=== PATIENT | female | born 1985 | race Caucasian/White ===

== ENCOUNTER 2018-05-25 14:07 | Emergency (ER) | payer BC, OTHER ==
--- NOTE | 2018-05-25 14:33 | ER Document Report ---
ED Medical Screen (RME) - General Chief Complaint: Lower Abdominal Pain Stated Complaint: ABDOMINAL PAIN Time Seen by Provider: 05/25/18 14:28 Notes: Patient is a 32-year-old female with TBI that presents to the emergency department for chief complaint of difficulty urinating, headache, body aches. ROS: Other than noted above, the 12 point review of systems was reviewed with the patient and were negative, all pertinent findings are included in the HPI. PHYSICAL EXAMINATION: Vital signs reviewed. GENERAL: Well-appearing, well-nourished and in no acute distress. HEAD: Atraumatic, normocephalic. EYES: Pupils equal round extraocular movements intact, conjunctiva are normal. ENT: Nares patent NECK: Normal range of motion CV: Heart regular rate and rhythm LUNGS: No respiratory distress Musculoskeletal: Normal range of motion NEUROLOGICAL: Normal speech PSYCH: Normal mood, normal affect. MDM: Patient seen and examined for rapid initial assessment. Vital signs reviewed. A comprehensive ED assessment and evaluation of the patient, analysis of test results and completion of the medical decision making process will be conducted by additional ED providers. *Note is created using voice recognition software and may contain spelling, syntax or grammatical errors. TRAVEL OUTSIDE OF THE [place] IN LAST 30 DAYS: No - Related Data Allergies/Adverse Reactions: No Known Allergies Allergy (Verified 05/25/18 14:10) Past Medical History - Social History Frequency of alcohol use: None Drug Abuse: None - Past Medical History Cardiac Medical History: Denies: Hx Coronary Artery Disease, Hx Hypertension Neurological Medical History: Reports: Hx Migraine Renal/ Medical History: Reports: Hx Ectopic , Hx Ovarian Cysts. Denies: Hx Peritoneal Dialysis GI Medical History: Reports: Hx Ulcer Past Surgical History: Reports: Hx Gynecologic Surgery - ectopic , bilateral oophrectomy, Hx Oral Surgery, Hx Tonsillectomy - Immunizations Immunizations up to date: Yes Hx Diphtheria, Pertussis, Tetanus Vaccination: Yes Physical Exam - Vital signs Vitals: Temp Pulse Resp BP Pulse Ox 98.0 F 89 16 128/76 H 99 05/25/18 14:15 05/25/18 14:15 05/25/18 14:15 05/25/18 14:15 05/25/18 14:15 Course - Vital Signs Vital signs: Temp Pulse Resp BP Pulse Ox 98.0 F 89 16 128/76 H 99 05/25/18 14:15 05/25/18 14:15 05/25/18 14:15 05/25/18 14:15 05/25/18 14:15
[2018-05-25 15:19] LABS: ABSOLUTE EOSINOPHILS # (AUTO) 0.2 10^3/uL (0.0-0.6); ABSOLUTE LYMPHOCYTES (AUTO) 2.2 10^3/uL (0.5-4.7); ABSOLUTE MONOCYTES (AUTO) 0.4 10^3/uL (0.1-1.4); ABSOLUTE NEUT (AUTO) 5.3 10^3/uL (1.7-8.2); BASOPHILS % (AUTO) 0.5 % (0-2); EOSINOPHILS % (AUTO) 2.4 % (0-6); HEMATOCRIT 43.6 % (36.0-47.0); HEMOGLOBIN 15.3 g/dL (12.0-15.5); LYMPHOCYTES % (AUTO) 27.4 % (13-45); MEAN CORPUSCULAR HEMOGLOBIN 33.2 pg (27.0-33.4); MEAN CORPUSCULAR VOLUME 95 fl (80-97); MONOCYTES % (AUTO) 4.3 % (3-13); PLATELET COUNT 202 10^3/uL (150-450); RED CELL DISTRIBUTION WIDTH 12.4 % (11.5-14.0); SEGMENTED NEUTROPHILS % (AUTO) 65.4 % (42-78); TOTAL CELLS COUNTED % (AUTO) 100 %; WHITE BLOOD COUNT 8.1 10^3/uL (4.0-10.5)
[2018-05-25 15:28] LABS: APPEARANCE,URINE SLIGHTLY-CLOUDY; BILIRUBIN,URINE NEGATIVE (NEGATIVE); COLOR,URINE STRAW; GLUCOSE, URINE NEGATIVE (NEGATIVE); KETONES,URINE NEGATIVE (NEGATIVE); LEUKOCYTE ESTERASE,URINE NEGATIVE (NEGATIVE); NITRITE,URINE NEGATIVE (NEGATIVE); PROTEIN,URINE NEGATIVE (NEGATIVE); URINE SPECIFIC GRAVITY 1.002; UROBILINOGEN,URINE NEGATIVE mg/dL (<2.0)
[2018-05-25 15:45] LABS: ALANINE AMINOTRANSFERASE 18 U/L (9-52); ALBUMIN 4.6 g/dL (3.5-5.0); ALKALINE PHOSPHATASE 61 U/L (38-126); ANION GAP 8 (5-19); ASPARTATE AMINO TRANSFERASE 21 U/L (14-36); BILIRUBIN,DIRECT 0.3 mg/dL (0.0-0.4); BILIRUBIN,TOTAL 0.5 mg/dL (0.2-1.3); BLOOD UREA NITROGEN 2 mg/dL (7-20); CALCIUM 9.3 mg/dL (8.4-10.2); CARBON DIOXIDE 29 mmol/L (22-30); CHLORIDE 108 mmol/L (98-107); GLUCOSE 90 mg/dL (75-110); LIPASE 68.7 U/L (23-300); POTASSIUM 3.7 mmol/L (3.6-5.0); SODIUM 144.8 mmol/L (137-145); TOTAL PROTEIN 7.7 g/dL (6.3-8.2)
--- NOTE | 2018-05-25 15:58 | ER Document Report ---
ED General - General TRAVEL OUTSIDE OF THE [place] IN LAST 30 DAYS: No <DOYLE BENNETT - Last Filed: 05/25/18 19:09> <SCARARJUNYUNIER - Last Filed: 05/25/18 22:40> - General Chief Complaint: Lower Abdominal Pain Stated Complaint: ABDOMINAL PAIN Time Seen by Provider: 05/25/18 14:28 - HPI Notes: Patient is a 32-year-old female with a history of TBI, chronic headaches, tremors, seizures, dystonia rt foot (progressing per pt), muscular atrophy who presents to the ED complaining of right posterior lateral headache times 3-4 days that has been relatively constant, but is not unusual for her. Patient states that she also will have an uncomfortable feeling when her bladder is too full she has to go the bathroom, which then improves thereafter. Patient states that she is able to urinate, and will occasionally push on her bladder to help push out the minimal remaining urine thereafter. Patient states that she will have occasional low back pain as well. Her pains do not radiate otherwise. She is eating and drinking without any difficulties. She is having normal bowel movements. She has not had any vaginal discharge, odor, or bleeding. No history of eating disorder, IV drug abuse, or prostitution. Denies any fever, head injury, neck pain, changes in vision/speech/mentation/ hearing, URI, sore throat, chest pain, palpitations, syncope, cough, shortness of breath, wheeze, dyspnea, abdominal pain, nausea/vomiting/diarrhea, hematuria , loss of control of bowel or bladder, numbness/tingling, saddle anesthesia, or rash. (DOYLE BENNETT) - Related Data Allergies/Adverse Reactions: No Known Allergies Allergy (Verified 05/25/18 14:10) Past Medical History - Social History Smoking Status: Current Every Day Smoker Frequency of alcohol use: None Drug Abuse: None Family History: Reviewed & Not Pertinent Patient has suicidal ideation: No Patient has homicidal ideation: No - Past Medical History Cardiac Medical History: Denies: Hx Coronary Artery Disease, Hx Hypertension Neurological Medical History: Reports: Hx Migraine Renal/ Medical History: Reports: Hx Ectopic , Hx Ovarian Cysts. Denies: Hx Peritoneal Dialysis GI Medical History: Reports: Hx Ulcer Past Surgical History: Reports: Hx Gynecologic Surgery - ectopic , bilateral oophrectomy, Hx Oral Surgery, Hx Tonsillectomy - Immunizations Immunizations up to date: Yes Hx Diphtheria, Pertussis, Tetanus Vaccination: Yes <DONALDDOYLE - Last Filed: 05/25/18 19:09> Review of Systems - Review of Systems -: Yes All other systems reviewed and negative <DOYLE BENNETT - Last Filed: 05/25/18 19:09> Physical Exam <DOYLE BENNETT - Last Filed: 05/25/18 19:09> <YUNIER PFEIFFER - Last Filed: 05/25/18 22:40> - Vital signs Vitals: Temp Pulse Resp BP Pulse Ox 98.0 F 89 16 128/76 H 99 05/25/18 14:15 05/25/18 14:15 05/25/18 14:15 05/25/18 14:15 05/25/18 14:15 - Notes Notes: PHYSICAL EXAMINATION: GENERAL: Pt appears cachectic and moves slowly. A&Ox4. Answers questions appropriately. HEAD: Atraumatic, normocephalic. + reproducible tenderness to palp rt posterolateral scalp (possible lymph node-mobile, cyst-like) EYES: Pupils equal round and reactive to light, extraocular movements intact, sclera anicteric, conjunctiva are normal. No nystagmus. vis douglass intact. No obvious red light deficit noted. ENT: EAC clear b/l. TM's intact b/l without erythema, fluid, or perforation. Nares patent and without discharge. oropharynx clear without exudates. No tonsilar hypertrophy or erythema. Moist mucous membranes. No sinus tenderness. NECK: Normal range of motion, supple without lymphadenopathy. No rigidity/ meningismus. No midline tenderness. LUNGS: Breath sounds clear to auscultation bilaterally and equal. No wheezes rales or rhonchi. HEART: Regular rate and rhythm without murmurs, rubs, gallops. ABDOMEN: Soft, nontender, nondistended abdomen. No guarding, no rebound. Normal bowel sounds present. No CVA tenderness bilaterally. Musculoskeletal: Rt foot: slightly inverted with LROM. Slight tremor noted to the rt hand. Ext's otherwise b/l: FROM to passive/active. Strength 5+/5. N/V intact distal. No bony tenderness of extremities. Back: FROM. Strength 5+/5. SLR neg. No obvious foot drop. Rectal tone intact. Extremities: No cyanosis, clubbing, or edema b/l. Peripheral pulses 2+. Capillary refill less than 2 seconds. NEUROLOGICAL: GCS 15. Cranial nerves grossly intact. Normal speech, normal gait. see above. Reflexes 2+ b/l. JAMIE's negative. Pronator drift negative. Heel/garcia, finger/nose wnl. Slight dystonia to finger:nose, but able to accomplish. PSYCH: Normal mood, normal affect. SKIN: Warm, Dry, normal turgor, no rashes or lesions noted. (DOYLE BENNETT) Course - Laboratory Result Diagrams: 05/25/18 15:05 05/25/18 15:05 <DOYLE BENNETT - Last Filed: 05/25/18 19:09> - Laboratory Result Diagrams: 05/25/18 15:05 05/25/18 15:05 <YUNIER PFEIFFER - Last Filed: 05/25/18 22:40> - Re-evaluation Re-evalutation: 05/25/18 16:07 I have been reviewing this case with Dr. Whitney as this is a unique case with neurological complaints. Pt has never had an MRI of the brain performed before , nor has she been seen by a neurologist. We will start with a CT scan and labs and consider MRI thereafter of the brain. Differential includes nonspecific neurological condition, MS, anorexia, HIV, etc. 05/25/18 18:[address] scan of the head were unremarkable for any acute pathology. Will obtain we will obtain an MRI to further evaluate. I did review with the radiologist who recommends with and without contrast. I did review and updated the case with the patient who is in agreement for the MRI for further evaluation. Patient has vague symptoms with nonspecific neurological component. She is not having any worsening or deterioration in her symptoms throughout her stay. She is nontoxic-appearing and is tolerating p.o. without difficulty. 05/25/18 19:10 Transfer of care to Yunier MENDOZA (DOYLE BENNETT) 05/25/18 22:38 MRI has finally completed, patient declined contrast during the procedure, non- contrast study was obtained. No acute findings. No obvious abnormalities. On discussion and reevaluation noted what appears to be a swollen lymph node over the posterior auricular area. Does not appear to be an abscess, area is mildly tender. Patient is currently completing a course of amoxicillin. After discussion provided with dexamethasone. Provided with copy of report and disc. Patient states she has follow-up with [facility] as previously. States she will take the image and report in a follow-up. Requesting discharge. Stable at time of discharge. (YUNIER PFEIFFER) - Vital Signs Vital signs: Temp Pulse Resp BP Pulse Ox 98.0 F 89 16 128/76 H 99 05/25/18 14:15 05/25/18 14:15 05/25/18 14:15 05/25/18 14:15 05/25/18 14:15 - Laboratory Laboratory results interpreted by nm: 05/25/18 15:05 Chloride 108 H BUN 2 L Creatinine 0.51 L Discharge <DOYLE BENNETT - Last Filed: 05/25/18 19:09> <YUNIER PFEIFFER - Last Filed: 05/25/18 22:40> - Discharge Clinical Impression: Headache Qualifiers: Headache type: unspecified Headache chronicity pattern: acute headache Intractability: not intractable Qualified Code(s): R51 - Headache Condition: Stable Instructions: Headache ([facility]) Additional Instructions: The MRI does not show any acute or concerning findings based on the noncontrast study that we obtained. Follow-up with [facility] as before for additional management, bring your disc/report. You have been given a dose of dexamethasone for the swelling of the lymph node, you can complete your amoxicillin course. He can take Tylenol or ibuprofen for pain if needed. Return to the ED with any worsening symptoms and/or development of fever, headache, changes in behavior/mentation/vision/speech, chest pain, palpitations , syncope, shortness of breath, trouble breathing, abdominal pain, n/v/d, blood in stool/urine, loss of control of bowel/bladder, urinary retention, muscle weakness/paralysis, saddle anesthesia, numbness/tingling, or other worsening symptoms that are concerning to you. Forms: Elevated Blood Pressure, Smoking Cessation Education Referrals: SHERRIE LAKHANI MD [EMERITUS] - Follow up as needed
--- NOTE | 2018-05-25 16:20 | RADIOLOGY REPORT (SQ) ---
EXAM DESCRIPTION: CT HEAD WITHOUT COMPLETED DATE/TIME: 05/25/2018 4:12 pm REASON FOR STUDY: headache, hx tbi COMPARISON: None. TECHNIQUE: Axial images acquired through the brain without intravenous contrast. Images reviewed wi th bone, brain and subdural windows. Additional sagittal and coronal reconstructions were generated. Images stored on PACS. All CT scanners at this facility use dose modulation, iterative reconstruction, and/or weight based d osing when appropriate to reduce radiation dose to as low as reasonably achievable (ALARA). [facility]: Dose Right [facility]: CareDose [facility]: Dose Right [facility]: Teradose 4D [facility]: Vendalize RADIATION DOSE: CT Rad equipment meets quality standard of care and radiation dose reduction techniq ues were employed. CTDIvol: 53.2 mGy. DLP: 964 mGy-cm. mGy. LIMITATIONS: None. FINDINGS: VENTRICLES: Normal size and contour. CEREBRUM: No masses. No hemorrhage. No midline shift. No evidence for acute infarction. Normal gra y/white matter differentiation. No areas of low density in the white matter. CEREBELLUM: No masses. No hemorrhage. No alteration of density. No evidence for acute infarction. EXTRAAXIAL SPACES: No fluid collections. No masses. ORBITS AND GLOBE: No intra- or extraconal masses. Normal contour of globe without masses. CALVARIUM: No fracture. PARANASAL SINUSES: No fluid or mucosal thickening. SOFT TISSUES: No mass or hematoma. OTHER: No other significant finding. IMPRESSION: NORMAL BRAIN CT WITHOUT CONTRAST. EVIDENCE OF ACUTE STROKE: NO. COMMENT: Quality ID # [id number]: Final reports with documentation of one or more dose reduction techniques (e.g., Automated exposure control, adjustment of the mA and/or kV according to patient size, use of iterative reconstruction technique) TECHNICAL DOCUMENTATION: JOB ID: [id number] [employer]- All Rights Reserved Reading location - IP/workstation name: [email or web address]
[2018-05-25 19:15] LABS: URINE AMPHETAMINES SCREEN NEGATIVE; URINE BARBITURATES SCREEN NEGATIVE; URINE BENZODIAZEPINES SCREEN UNCONFIRMED POSITIVE; URINE COCAINE SCREEN NEGATIVE; URINE MARIJUANA (THC) SCREEN NEGATIVE; URINE METHADONE SCREEN NEGATIVE; URINE PHENCYCLIDINE SCREEN NEGATIVE
--- NOTE | 2018-05-25 21:19 | RADIOLOGY REPORT (SQ) ---
EXAM DESCRIPTION: MR BRAIN WITHOUT THEN WITH IV CONTRAST COMPLETED DATE/TME: 05/25/2018 18:02 CLINICAL HISTORY: 32 years, Female, Headaches, neuro symptoms, ?MS COMPARISON: None EXAM DESCRIPTION: CLINICAL HISTORY: Headaches, neuro symptoms, ?MS COMPARISON: None TECHNIQUE: Multiplanar multisequence imaging of the brain including the intravenous administration of contrast. FINDINGS: There is no evidence of acute mass, mass effect, midline shift or hemorrhage. No focal abnormal extra-axial fluid collection is seen. The ventricles, basal cisterns and extra-axial fluid spaces are normal in size and configuration. Brain parenchymal signal is normal. IMPRESSION: No acute abnormalities. . TECHNIQUE: Images stored on PACS. LIMITATIONS: None. FINDINGS: IMPRESSION: 2010 [facility], [place] [employer]- All Rights Reserved
[2018-05-25] MEDS ORDERED: DEXAMETHASONE SOD PHOS INJ 10 MG/1 ML VIAL IM ONE (22:32)
[2018-05-25 22:56] VITALS: BP 115/68
--- NOTE | 2018-05-26 07:19 | EKG REPORT ---
SEVERITY:- NORMAL ECG - SINUS RHYTHM : Confirmed by: Monica Plummer 26-May-2018 07:18:34
--- NOTE | 2018-05-26 09:41 | RADIOLOGY REPORT (SQ) ---
EXAM DESCRIPTION: MRI HEAD WITHOUT COMPLETED DATE/TIME: 05/26/2018 9:29 am REASON FOR STUDY: HEADACHE, NEURO SYMPTOMS, ? MS COMPARISON: None. TECHNIQUE: Multiplanar imaging includes non-contrasted T1, T2, FLAIR, and diffusion with ADC map seq uences. Images stored on PACS. LIMITATIONS: None. FINDINGS: ANATOMY: No anomalies. Normal vascular flow voids. Pituitary fossa normal. CSF SPACES: Normal in size and contour. No hemorrhage. CEREBRUM: Sulci and gyri normal in size and contour. Normal white matter signal on FLAIR imaging. No evidence of hemorrhage, mass, or extraaxial fluid collection. POSTERIOR FOSSA: No signal alteration. No hemorrhage. No edema, masses or mass effect. Internal chapis tory canals, cerebello-pontine angles, mastoids normal. DIFFUSION IMAGING: Negative for acute or sub-acute infarction. ORBITS: No masses. Globes normal. PARANASAL SINUSES: Mild mucosal thickening left sphenoid sinus. No fluid levels. OTHER: No other significant finding. IMPRESSION: NORMAL MRI OF THE BRAIN WITHOUT INTRAVENOUS GADOLINIUM CONTRAST. EVIDENCE OF ACUTE STROKE: NO. TECHNICAL DOCUMENTATION: JOB ID: [id number] [employer]- All Rights Reserved Reading location - IP/workstation name: [email or web address]
== END 2018-05-25 22:56 | disposition home or self-care (01) ==
LOC: ER 14:07
DX: R51 Headache (principal); R39.89 Other symptoms and signs involving the genitourinary system; M54.5 Low back pain; G24.9 Dystonia, unspecified; F17.200 Nicotine dependence, unspecified, uncomplicated; Z87.820 Personal history of traumatic brain injury
CPT/HCPCS: 93005; 99284; 96372; 36415; 83690; 84443; 84703; 85025; 80053; 81001; 80307; 70551; 70450; 93010; J1100; 70553

== ENCOUNTER 2019-06-18 02:53 | Emergency (ER) | payer SELFPAY ==
--- NOTE | 2019-06-18 03:45 | ER Document Report ---
ED General - General Chief Complaint: ETOH Abuse Stated Complaint: ETOH Time Seen by Provider: 06/18/19 03:45 Mode of Arrival: Medic Information source: Patient, Relative TRAVEL OUTSIDE OF THE [place] IN LAST 30 DAYS: No - HPI Patient complains to provider of: Alcohol Abuse Onset: This evening Onset/Duration: Gradual Quality of pain: No pain Severity: Moderate Pain Level: Denies Context: Patient was drinking at a bar Associated symptoms: None Exacerbated by: Denies Relieved by: Denies Similar symptoms previously: No Recently seen / treated by doctor: No Notes: 33 year old female with a history of TBI, chronic headaches, tremors, seizures, dystonia rt foot (progressing per pt), muscular atrophy brought in by EMS for alcohol intoxication. The patient says she was drinking at a bar and she drank too much. The patient is prescribed Valium but she says she does not take this when drinking. The patient denies SI or HI. The patient's family is with her at the time of my examination of her. The patient's significant other tell me he was afraid of the patient's breathing at one point as she looked like she was gasping for breath apparently for a brief period of time. The patient is breathing normally in the ER now. - Related Data Allergies/Adverse Reactions: No Known Allergies Allergy (Verified 05/25/18 14:10) Home Medications: Valium 5mg Past Medical History - Social History Smoking Status: Current Some Day Smoker Frequency of alcohol use: Social Drug Abuse: Marijuana Lives with: Family Family History: Reviewed & Not Pertinent Patient has suicidal ideation: No Patient has homicidal ideation: No - Past Medical History Cardiac Medical History: Reports: None Denies: Hx Coronary Artery Disease, Hx Hypertension Pulmonary Medical History: Reports: None EENT Medical History: Reports: None Neurological Medical History: Reports: Hx Migraine Endocrine Medical History: Reports: None Renal/ Medical History: Reports: Hx Ectopic , Hx Ovarian Cysts. Denies: Hx Peritoneal Dialysis Malignancy Medical History: Reports: None GI Medical History: Reports: Hx Ulcer Musculoskeletal Medical History: Reports Other - muscle atrophy and dystonia Skin Medical History: Reports None Psychiatric Medical History: Reports: Hx Anxiety Traumatic Medical History: Reports: Hx Traumatic Brain Injury Infectious Medical History: Reports: None Past Surgical History: Reports: Hx Gynecologic Surgery - ectopic , bilateral oophrectomy, Hx Oral Surgery, Hx Tonsillectomy - Immunizations Immunizations up to date: Yes Hx Diphtheria, Pertussis, Tetanus Vaccination: Yes Review of Systems - Review of Systems Constitutional: Other - alcohol intoxication EENT: No symptoms reported Cardiovascular: No symptoms reported Respiratory: Other - transient trouble breathing Gastrointestinal: No symptoms reported Genitourinary: No symptoms reported Female Genitourinary: No symptoms reported Musculoskeletal: No symptoms reported Skin: No symptoms reported Hematologic/Lymphatic: No symptoms reported Neurological/Psychological: Anxiety Physical Exam - Vital signs Vitals: Temp Pulse Resp BP Pulse Ox 97.9 F 83 15 106/67 96 06/18/19 02:53 06/18/19 02:53 06/18/19 02:53 06/18/19 02:53 06/18/19 02:53 - Notes Notes: GENERAL: Well-appearing, well-nourished and in no acute distress, patient is clearing intoxicated. HEAD: Atraumatic, normocephalic. EYES: Pupils equal round and reactive to light, extraocular movements intact, sclera anicteric, conjunctiva are normal. ENT: Nares patent, oropharynx clear without exudates. Moist mucous membranes. NECK: Normal range of motion, supple without lymphadenopathy or JVD. LUNGS: Breath sounds clear to auscultation bilaterally and equal. No wheezes rales or rhonchi. HEART: Regular rate and rhythm without murmurs, rubs or gallops. ABDOMEN: Soft, nontender, normoactive bowel sounds. No guarding, no rebound. No masses appreciated. EXTREMITIES: Normal range of motion, no pitting or edema. No clubbing or cyanosis. NEUROLOGICAL: Cranial nerves II through XII grossly intact. Normal speech, normal gait. PSYCH: Normal mood, normal affect. SKIN: Warm, Dry, normal turgor, no rashes or lesions noted. Course - Re-evaluation Re-evalutation: 06/18/19 04:41 The patient was brought to the ER for alcohol intoxication. She has no real complaints while in the ER except for some pain from a cracked off right lower molar. The patient's significant other was apparently concerned about her breathing briefly but the patient is breathing fine here in the ER. The patient's family said they would take the patient home and watch out for her tonight. 06/18/19 04:43 - Vital Signs Vital signs: Temp Pulse Resp BP Pulse Ox 97.9 F 83 14 100/66 99 06/18/19 02:53 06/18/19 02:53 06/18/19 04:21 06/18/19 04:21 06/18/19 04:21 Discharge - Discharge Clinical Impression: Alcohol abuse Condition: Stable Disposition: HOME, SELF-CARE Instructions: Acute Alcohol Intoxication ([facility]) Additional Instructions: Drink plenty of fluids in the days to come. Watch your alcohol intake in the future. Follow up with your primary care doctor.
[2019-06-18 04:23] VITALS: BP 100/66
== END 2019-06-18 04:36 | disposition home or self-care (01) ==
LOC: ER 02:53
DX: F10.129 Alcohol abuse with intoxication, unspecified (principal); Z87.820 Personal history of traumatic brain injury; Z79.899 Other long term (current) drug therapy; F17.200 Nicotine dependence, unspecified, uncomplicated
CPT/HCPCS: 99284